=== PATIENT | male | born 1965 | race Caucasian/White ===

== ENCOUNTER → 2024-08-22 10:35 | Outpatient (REF) | payer MEDICARE, OTHER, SELFPAY | LOC: PAVMRI 10:35 | PROVIDERS: ATTENDING PHYSICIAN Physician Assistant; FAMILY PHYSICIAN Internal Medicine | DX: H90.6 Mixed conductive and sensorineural hearing loss, bilateral (principal) | CPT/HCPCS: 70553; A9575 ==

== ENCOUNTER 2025-01-15 06:04 | Day surgery (SDC) | payer MEDICARE, OTHER, SELFPAY ==
[2025-01-15 14:22] VITALS: BMI 29.7
[2025-01-15 14:23] VITALS: BP 158/98; BMI 29.7
[2025-01-15 15:47] VITALS: BP 140/109
[2025-01-15 16:00] VITALS: BP 165/110
[2025-01-15 16:15] VITALS: BP 155/99
== END 2025-01-15 16:29 | disposition home or self-care (01) ==
LOC: SDS 06:04
PROVIDERS: ATTENDING PHYSICIAN Internal Medicine Gastroenterology
DX: Z12.11 Encounter for screening for malignant neoplasm of colon (principal); K51.50 Left sided colitis without complications; K63.5 Polyp of colon; K57.30 Diverticulosis of large intestine without perforation or abscess without bleeding; K64.8 Other hemorrhoids
CPT/HCPCS: 45385; 45380; 88305